=== PATIENT | female | born 1955 | race Caucasian/White ===

== ENCOUNTER 2022-07-06 19:26 | Emergency (ER) | payer OTHER, MEDICAID ==
[~2022-07-06] VITALS: Ht 167.6 cm; Wt 80.0 kg
[2022-07-06] MEDS ORDERED: HALOPERIDOL LACTATE 5MG/ML VIAL IM ONE (22:00)
[2022-07-06] MEDS ORDERED: HALOPERIDOL LACTATE 5MG/ML VIAL IM PRN (22:15)
[2022-07-06 23:12] LABS: BASOPHILS % 0.5 % (0.0-2.0); EOSINOPHILS % 0.6 % (0.0-5.0); HEMATOCRIT. 30.7 % (36.0-48.0); HEMOGLOBIN. 10.1 g/dL (12.0-16.0); LYMPHOCYTES % 11.8 % (20.0-50.0); MEAN CORPUSCULAR HEMOGLOBIN 30.4 pg (28.0-32.0); MEAN PLATELET VOLUME 9.4 fl (7.4-10.4); MONOCYTES % 7.7 % (2.0-8.0); NEUTROPHILS % 79.4 % (40.0-76.0); PLATELET 253 x1000/uL (130-400); RED BLOOD CELL COUNT 3.34 mill/uL (4.2-5.4); RED CELL DISTRIBUTION WIDTH 15.2 % (11.6-14.6)
[2022-07-06 23:23] LABS: CHLORIDE 117 mEq/L (98-107)
[2022-07-06 23:41] LABS: ETHANOL BLOOD < 10 mg/dL
[2022-07-07] MEDS ORDERED: DIPHENHYDRAMINE 50MG/ML VIAL IM PRN (01:45)
[2022-07-07] MEDS ORDERED: HALOPERIDOL LACTATE 5MG/ML VIAL IM ONE (01:45)
[2022-07-07] MEDS: VALPROATE SODIUM 250MG/5ML UDC PO SCH ×2 (13:15→17:30)
[2022-07-07] MEDS ORDERED: QUETIAPINE FUMARATE 25MG TABLET PO SCH (13:30)
[2022-07-08 13:24] VITALS: BP 136/91
== END 2022-07-08 13:31 | disposition left against medical advice (07) ==
LOC: ER 19:26
DX: R41.82 Altered mental status, unspecified (principal); R45.1 Restlessness and agitation; F03.90 Unspecified dementia, unspecified severity, without behavioral disturbance, psychotic disturbance, mood disturbance, and anxiety; F32.9 Major depressive disorder, single episode, unspecified; I10 Essential (primary) hypertension; Z20.822 Contact with and (suspected) exposure to COVID-19
CPT/HCPCS: 36415; 70450; 71045; 80053; 80307; 80320; 80329; 82140; 82962; 83605; 84443; 84484; 85025; 87426; 93005; 96372; 99285; C9803; J1200; J1630; G0480

== ENCOUNTER 2022-08-28 17:28 | Emergency (ER) | payer OTHER, MEDICAID ==
[~2022-08-28] VITALS: Ht 152.4 cm; Wt 55.0 kg
[2022-08-28 17:35] VITALS: BP 103/46
== END 2022-08-28 18:15 | disposition left against medical advice (07) ==
LOC: ER 17:28
DX: S00.81XA Abrasion of other part of head, initial encounter (principal); W01.0XXA Fall on same level from slipping, tripping and stumbling without subsequent striking against object, initial encounter; Y93.89 Activity, other specified; Y92.488 Other paved roadways as the place of occurrence of the external cause
CPT/HCPCS: 99281

== ENCOUNTER 2023-12-27 16:48 | Emergency (ER) | payer OTHER, MEDICAID ==
[~2023-12-27] VITALS: Ht 149.9 cm; Wt 50.0 kg
[~2023-12-27 16:48] MED LIST: QUET50TA PO; SERT50TA PO
[2023-12-27 16:58] VITALS: TEMP 99.1; O2SAT 98
[2023-12-27 17:30] LABS: BASOPHILS % 0.6 % (0.0-2.0); EOSINOPHILS % 0.5 % (0.0-5.0); HEMATOCRIT. 35.8 % (36.0-48.0); HEMOGLOBIN. 11.8 g/dL (12.0-16.0); LYMPHOCYTES % 23.8 % (20.0-50.0); MEAN CORPUSCULAR HEMOGLOBIN 28.9 pg (28.0-32.0); MEAN CORPUSCULAR VOLUME 87.7 fL (81.0-99.0); MEAN PLATELET VOLUME 9.3 fl (7.4-10.4); MONOCYTES % 7.2 % (2.0-8.0); NEUTROPHILS % 67.9 % (40.0-76.0); PLATELET 470 x1000/uL (130-400); RED BLOOD CELL COUNT 4.08 mill/uL (4.2-5.4); RED CELL DISTRIBUTION WIDTH 16.8 % (11.6-14.6)
[2023-12-27 17:35] LABS: CHLORIDE 106 mEq/L (98-107); POTASSIUM 3.8 mEq/L (3.5-5.1); SODIUM 140 mEq/L (136-145)
[2023-12-27 17:36] LABS: CARBON DIOXIDE 25 mEq/L (21-32)
[2023-12-27 17:37] LABS: CALCIUM 10.4 mg/dL (8.7-10.4)
[2023-12-27 17:41] LABS: CREATININE 0.9 mg/dL (0.6-1.0); GLUCOSE 156 mg/dL (70-105)
[2023-12-27 17:42] LABS: TROPONIN I HIGH SENSITIVITY 5 ng/L (3.0-34); UREA NITROGEN BLOOD 9 mg/dL (9-23)
[2023-12-27 17:43] LABS: ALANINE AMINOTRANSFERASE 12 IU/L (10-49); ALBUMIN 4.6 g/dL (3.2-4.8); ASPARTATE AMINOTRANSFERASE 16 IU/L (<34)
[2023-12-27 17:44] LABS: BILIRUBIN DIRECT < 0.1 mg/dL (<=3.0); BILIRUBIN TOTAL 0.3 mg/dL (0.1-1.0); PROTEIN TOTAL 7.9 g/dL (6.0-8.3)
[2023-12-27 18:21] LABS: CLARITY URINE CLEAR (CLEAR); COLOR URINE YELLOW (YELLOW); GLUCOSE URINE TRACE (NEGATIVE); KETONES URINE TRACE (NEGATIVE); LEUKOCYTE ESTERASE URINE 1+ (NEGATIVE); NITRITE URINE NEGATIVE (NEGATIVE); OCCULT BLOOD URINE NEGATIVE (NEGATIVE); PH URINE 6.5 (4.5-8.0); PROTEIN URINE 1+ (NEGATIVE); SPECIFIC GRAVITY URINE 1.021 (1.005-1.030)
[2023-12-27 18:38] LABS: BACTERIA URINE NONE SEEN; RBC URINE NONE SEEN /hpf (0-2); SQUAMOUS EPITHELIAL CELL URINE RARE /lpf (RARE/1+)
[2023-12-27] MEDS: ONDANSETRON HCL 4MG/2ML INJ IV ONE ×2 (20:48→23:30)
[2023-12-27] MEDS: MORPHINE SULFATE 4 MG/ML INJ (FOR IV/IM USE) IV ONE (20:48)
[2023-12-27] MEDS: CEFTRIAXONE 1GM/50ML 50 ML IV NR (23:29)
[2023-12-27] MEDS: KETOROLAC 15MG/ML VIAL IV ONE (23:30)
[2023-12-27] MEDS: SODIUM CHLORIDE 0.9% 1,000 ML IV NR (23:31)
[2023-12-28] MEDS ORDERED: ACET-2708 MT (01:19)
[2023-12-28] MEDS ORDERED: CEPH500T MT (01:19)
[2023-12-28] MEDS ORDERED: ONDA4TAB50 MT (01:19)
[2023-12-28 01:32] VITALS: BP 132/69; PULSE 93; RESP 20
[2023-12-28] MEDS ORDERED: IOHEXOL-300 100 ML BOTTLE ONE (02:51)
== END 2023-12-28 01:54 | disposition home or self-care (01) ==
LOC: ER 16:48
DX: N39.0 Urinary tract infection, site not specified (principal); R11.2 Nausea with vomiting, unspecified; F03.90 Unspecified dementia, unspecified severity, without behavioral disturbance, psychotic disturbance, mood disturbance, and anxiety; I10 Essential (primary) hypertension
CPT/HCPCS: 99285; 74177; 96365; 96375; 80076; 80048; 81003; 85025; 84484; 36415; 93005; 96376; J0696; J1885; J2405; J2270; Q9967

== ENCOUNTER 2024-04-06 11:30 | Emergency (ER) | payer OTHER, MEDICAID ==
[~2024-04-06] VITALS: Ht 160 cm; Wt 61.0 kg
[~2024-04-06 11:30] MED LIST changes: +BUSP10TA3 PO; +GABA-532 PO; +LOSA100T33 PO; +METO10TA3 PO; +OXYC1TAB10 PO; +PARO-41 PO; +TRAZ-251 PO
[2024-04-06 11:51] VITALS: O2SAT 98
[2024-04-06] MEDS ORDERED: NAPR-681 MT (14:46)
[2024-04-06 14:52] VITALS: BP 119/64; PULSE 101; RESP 22; TEMP 37.16964; O2SAT 98
[2024-04-18] MEDS ORDERED: SULF1TAB44 PO (13:51)
== END 2024-04-06 15:38 | disposition home or self-care (01) ==
LOC: ER 13:12
DX: Z48.02 Encounter for removal of sutures (principal); F03.90 Unspecified dementia, unspecified severity, without behavioral disturbance, psychotic disturbance, mood disturbance, and anxiety; Z79.899 Other long term (current) drug therapy; Z98.890 Other specified postprocedural states
CPT/HCPCS: 99282

== ENCOUNTER 2024-07-13 01:16 | Emergency (ER) | payer OTHER, MEDICAID ==
[~2024-07-13] VITALS: Ht 154.9 cm; Wt 60.0 kg
[~2024-07-13 01:16] MED LIST changes: +GABA-1180 PO; -GABA-532 PO; +NAPR-681 MT; -OXYC1TAB10 PO
[2024-07-13 02:20] VITALS: O2SAT 100
[2024-07-13] MEDS: ONDANSETRON HCL 4MG/2ML INJ IV STA (02:20)
[2024-07-13] MEDS: MIDAZOLAM HCL 2 MG/2 ML VIAL IV ONE (02:20)
[2024-07-13] MEDS: MORPHINE SULFATE 4 MG/ML INJ (FOR IV/IM USE) IV STA (02:21)
[2024-07-13 03:19] LABS: BG BASE EXCESS -5.2 mmol/L (-2.0-3.0); BG DEOXYHEMOGLOBIN 3.3 % (0.0-5.0); BG FRACTION INSPIRED OXYGEN 21; BG HCO3 ACT 20.7 mmol/L (21.0-28.0); BG METHEMOGLOBIN 0.1 % (0.5-1.5); BG OXYGEN SATURATION 96.7 % (94.0-98.0); BG OXYHEMOGLOBIN 95.6 % (94.0-98.0); BG PCO2 42.3 mmHg (32.0-45.0); BG PH 7.308 (7.350-7.450); BG SAMPLE SITE RIGHT RADIAL; BG TOTAL HEMOGLOBIN 8.7 g/dL (12.0-16.0); BG VENT MODE ROOM AIR
[2024-07-13 03:28] LABS: CHLORIDE 105 mEq/L (98-107); POTASSIUM 3.6 mEq/L (3.5-5.1); SODIUM 136 mEq/L (136-145)
[2024-07-13 03:29] LABS: CARBON DIOXIDE 24 mEq/L (21-32)
[2024-07-13 03:30] LABS: CALCIUM 8.5 mg/dL (8.7-10.4)
[2024-07-13 03:34] LABS: CREATININE 1.1 mg/dL (0.6-1.0); GLUCOSE 126 mg/dL (70-105); UREA NITROGEN BLOOD 16 mg/dL (9-23)
[2024-07-13 03:35] LABS: BASOPHILS % 1.3 % (0.0-2.0); EOSINOPHILS % 13.1 % (0.0-5.0); HEMOGLOBIN. 7.7 g/dL (12.0-16.0); LYMPHOCYTES % 34.4 % (20.0-50.0); MEAN CORPUSCULAR HEMOGLOBIN 25.3 pg (28.0-32.0); MEAN CORPUSCULAR HGB CONC 30.9 g/dL (31.0-37.0); MEAN CORPUSCULAR VOLUME 81.8 fL (81.0-99.0); MONOCYTES % 8.4 % (2.0-8.0); NEUTROPHILS % 42.8 % (40.0-76.0); PLATELET 299 x1000/uL (130-400); RED BLOOD CELL COUNT 3.05 mill/uL (4.2-5.4); WHITE BLOOD COUNT 4.5 x1000/uL (4.5-11.0)
[2024-07-13 03:46] LABS: TROPONIN I HIGH SENSITIVITY < 4 ng/L (3.0-34)
[2024-07-13] MEDS: MORPHINE SULFATE 4 MG/ML INJ (FOR IV/IM USE) IV NR (04:23)
[2024-07-13 05:45] LABS: TROPONIN I HIGH SENSITIVITY < 4 ng/L (3.0-34)
[2024-07-13] MEDS ORDERED: CLONIDINE 0.1MG TABLET PO PRN (13:00)
[2024-07-13] MEDS ORDERED: DOCUSATE SODIUM 100MG CAPSULE PO PRN (13:00)
[2024-07-13] MEDS ORDERED: ACETAMINOPHEN 325MG TABLET PO PRN ×2 (13:00)
[2024-07-13] MEDS ORDERED: IPRATROPIUM/ALBUTEROL 0.5-3(2.5)MG/3ML NEB HHN PRN (13:00)
[2024-07-13] MEDS ORDERED: ONDANSETRON HCL 4MG/2ML INJ IV PRN (13:00)
[2024-07-13 14:30] VITALS: BP 109/60; PULSE 81; RESP 17; O2SAT 98
== END 2024-07-13 16:23 | disposition home or self-care (01) ==
LOC: ER 01:35 → CANBEDREQ 16:01 → ER 16:23
DX: I50.9 Heart failure, unspecified (principal); J45.909 Unspecified asthma, uncomplicated; Z79.899 Other long term (current) drug therapy; Z98.890 Other specified postprocedural states
CPT/HCPCS: 99291; 93970; 96374; 96375; 71045; 80048; 83880; 83605; 85025; 85379; 84484; 87804 ×2; 36415; 82805; 82375; 96376; 36600; J2250; J2405; J2270

== ENCOUNTER 2024-08-21 06:20 | Emergency (ER) | payer OTHER, MEDICAID ==
[~2024-08-21] VITALS: Ht 162.6 cm; Wt 50.0 kg
[2024-08-21 06:30] VITALS: TEMP 97.9; O2SAT 97
[2024-08-21 06:32] VITALS: BP 146/99; PULSE 99; RESP 20; O2SAT 98
[2024-08-21] MEDS ORDERED: KETOROLAC 15MG/ML VIAL IM ONE (07:30)
[2024-08-21] MEDS ORDERED: ACETAMINOPHEN 325MG TABLET PO ONE (07:30)
[2024-08-21] MEDS ORDERED: LIDO700A30 TP (08:34)
[2024-08-21] MEDS ORDERED: ACET-2708 MT (08:34)
[2024-08-21] MEDS: KETOROLAC 15MG/ML VIAL IM NR (09:18)
[2024-08-21] MEDS: ACETAMINOPHEN 325MG TABLET PO NR (09:18)
[2024-08-21] MEDS: LIDOCAINE 5% PATCH TOP SCH (09:18)
== END 2024-08-21 09:22 | disposition home or self-care (01) ==
LOC: ER 06:36
DX: M25.551 Pain in right hip (principal); F03.90 Unspecified dementia, unspecified severity, without behavioral disturbance, psychotic disturbance, mood disturbance, and anxiety; J45.909 Unspecified asthma, uncomplicated; Z79.1 Long term (current) use of non-steroidal anti-inflammatories (NSAID); Z79.899 Other long term (current) drug therapy; Z96.641 Presence of right artificial hip joint
CPT/HCPCS: 99283; 73502; 96372; J1885

== ENCOUNTER 2024-09-07 06:00 | Emergency (ER) | payer OTHER, MEDICAID ==
[~2024-09-07] VITALS: Ht 154.9 cm; Wt 45.5 kg
[~2024-09-07 06:00] MED LIST changes: +ACET-2708 MT; +LIDO700A30 TP
[2024-09-07 06:09] VITALS: O2SAT 99
[2024-09-07] MEDS: HYDROCODONE/ACETAMINOPHEN 5/325MG TABLET PO ONE (07:47)
[2024-09-07] MEDS ORDERED: NAPR-681 MT (07:57)
[2024-09-07 08:35] VITALS: BP 130/70; PULSE 84; RESP 16; TEMP 36.8; O2SAT 99
== END 2024-09-07 08:54 | disposition home or self-care (01) ==
LOC: ER 06:23
DX: M25.551 Pain in right hip (principal); J45.909 Unspecified asthma, uncomplicated; Z98.890 Other specified postprocedural states; Z79.899 Other long term (current) drug therapy
CPT/HCPCS: 99283

== ENCOUNTER 2024-12-18 16:22 | Emergency (ER) | payer OTHER, MEDICAID ==
[~2024-12-18] VITALS: Ht 157.5 cm; Wt 55.0 kg
[~2024-12-18 16:22] MED LIST changes: -ACET-2708 MT; -BUSP10TA3 PO; -GABA-1180 PO; -LIDO700A30 TP; +LOSA-412 MT; -LOSA100T33 PO; -METO10TA3 PO; -NAPR-681 MT; -PARO-41 PO; -QUET50TA PO; -SERT50TA PO; -TRAZ-251 PO
[2024-12-18 16:24] VITALS: O2SAT 98
[2024-12-18] MEDS: OXYCODONE HCL/ACETAMINOPHEN 5/325MG TABLET PO ONE (16:49)
[2024-12-18 18:30] VITALS: BP 112/68; PULSE 82; RESP 20; TEMP 36.6; O2SAT 97
== END 2024-12-18 18:48 | disposition home or self-care (01) ==
LOC: ER 16:22
DX: G89.29 Other chronic pain (principal); M54.50 Low back pain, unspecified; M25.551 Pain in right hip; F03.90 Unspecified dementia, unspecified severity, without behavioral disturbance, psychotic disturbance, mood disturbance, and anxiety; J45.909 Unspecified asthma, uncomplicated; Z79.899 Other long term (current) drug therapy
CPT/HCPCS: 99283

== ENCOUNTER 2025-01-20 15:35 | Emergency (ER) | payer OTHER, MEDICAID ==
[~2025-01-20] VITALS: Ht 157.5 cm; Wt 49.8 kg
[2025-01-20 15:42] VITALS: O2SAT 97
[2025-01-20] MEDS ORDERED: ACETAMINOPHEN 325MG TABLET PO ONE (16:30)
[2025-01-20] MEDS ORDERED: OXYC1TAB5 MT (16:41)
[2025-01-20] MEDS: OXYCODONE HCL/ACETAMINOPHEN 5/325MG TABLET PO ONE (16:56)
[2025-01-20 16:58] VITALS: BP 138/84; PULSE 86; RESP 18; TEMP 36.8; O2SAT 98
== END 2025-01-20 16:59 | disposition home or self-care (01) ==
LOC: ER 15:35
DX: G89.29 Other chronic pain (principal); M54.9 Dorsalgia, unspecified; J45.909 Unspecified asthma, uncomplicated; F03.90 Unspecified dementia, unspecified severity, without behavioral disturbance, psychotic disturbance, mood disturbance, and anxiety; Z76.0 Encounter for issue of repeat prescription; Z98.890 Other specified postprocedural states
CPT/HCPCS: 99283

== ENCOUNTER 2025-03-18 11:40 | Emergency (ER) | payer OTHER, MEDICAID ==
[~2025-03-18] VITALS: Ht 160 cm; Wt 49.0 kg
[~2025-03-18 11:40] MED LIST changes: +CIPR-263 MT; +OXYC1TAB5 MT
[2025-03-18 12:07] VITALS: O2SAT 96
[2025-03-18] MEDS: KETOROLAC 30MG/ML VIAL IM ONE (12:45)
[2025-03-18] MEDS ORDERED: IBUP-2029 MT (14:35)
[2025-03-18 14:54] VITALS: BP 141/77; PULSE 78; RESP 18; TEMP 36.7; O2SAT 96
== END 2025-03-18 14:57 | disposition home or self-care (01) ==
LOC: ER 11:44
DX: G89.29 Other chronic pain (principal); M25.551 Pain in right hip; J45.909 Unspecified asthma, uncomplicated; F03.90 Unspecified dementia, unspecified severity, without behavioral disturbance, psychotic disturbance, mood disturbance, and anxiety; Z79.899 Other long term (current) drug therapy; Z96.641 Presence of right artificial hip joint
CPT/HCPCS: 99283; 73502; 96372; J1885

== ENCOUNTER 2025-03-26 19:05 | Emergency (ER) | payer OTHER, MEDICAID ==
[~2025-03-26] VITALS: Ht 165.1 cm; Wt 41.0 kg
[~2025-03-26 19:05] MED LIST changes: +IBUP-2029 MT
[2025-03-26 19:06] VITALS: TEMP 37; O2SAT 96
[2025-03-26 19:59] LABS: CLARITY URINE CLOUDY (CLEAR); COLOR URINE ORANGE (YELLOW); GLUCOSE URINE NEGATIVE (NEGATIVE); KETONES URINE 2+ (NEGATIVE); LEUKOCYTE ESTERASE URINE 2+ (NEGATIVE); NITRITE URINE POSITIVE (NEGATIVE); OCCULT BLOOD URINE 3+ (NEGATIVE); PH URINE 5.0 (4.5-8.0); PROTEIN URINE 2+ (NEGATIVE); SPECIFIC GRAVITY URINE 1.020 (1.005-1.030); UROBILINOGEN URINE 1.0 E.U./dL (0.2-1.0)
[2025-03-26 20:07] LABS: BASOPHILS % 0.8 % (0.0-2.0); EOSINOPHILS % 4.0 % (0.0-5.0); HEMATOCRIT. 35.1 % (36.0-48.0); HEMOGLOBIN. 11.4 g/dL (12.0-16.0); LYMPHOCYTES % 24.1 % (20.0-50.0); MEAN PLATELET VOLUME 8.9 fl (7.4-10.4); MONOCYTES % 7.0 % (2.0-8.0); NEUTROPHILS % 64.1 % (40.0-76.0); PLATELET 371 x1000/uL (130-400); RED BLOOD CELL COUNT 3.69 mill/uL (4.2-5.4); RED CELL DISTRIBUTION WIDTH 16.1 % (11.6-14.6)
[2025-03-26 20:19] LABS: INR 0.9
[2025-03-26] MEDS: MORPHINE SULFATE 4 MG/ML INJ (FOR IV/IM USE) IV ONE (20:20)
[2025-03-26 20:21] LABS: ETHANOL BLOOD < 10 mg/dL (<10); UREA NITROGEN BLOOD 14 mg/dL (9-23)
[2025-03-26] MEDS: SODIUM CHLORIDE 0.9% 1,000 ML IV ONE (20:21)
[2025-03-26] MEDS: METOCLOPRAMIDE HCL 10MG/2ML VIAL IV ONE (20:21)
[2025-03-26 20:22] LABS: ASPARTATE AMINOTRANSFERASE 14 IU/L (<34); BILIRUBIN DIRECT 0.1 mg/dL (<=3.0); TROPONIN I HIGH SENSITIVITY 4 ng/L (3.0-34)
[2025-03-26 20:23] LABS: BILIRUBIN TOTAL 0.3 mg/dL (0.1-1.0); PROTEIN TOTAL 7.4 g/dL (6.0-8.3)
[2025-03-26 20:25] LABS: CREATININE 1.4 mg/dL (0.6-1.0)
[2025-03-26 20:35] LABS: BACTERIA URINE 2+; RBC URINE 15-25 /hpf (0-2); SQUAMOUS EPITHELIAL CELL URINE 1+ /lpf (RARE/1+)
[2025-03-26 21:35] VITALS: BP 175/90; PULSE 87; RESP 25; O2SAT 96
[2025-03-26] MEDS: CEFTRIAXONE 2GM/50ML 50 ML IV NR (22:35)
[2025-03-26] MEDS ORDERED: CEPH500T MT (22:49)
[2025-03-27] MEDS: IOHEXOL-300 100 ML BOTTLE ONE (00:21)
== END 2025-03-26 23:21 | disposition home or self-care (01) ==
LOC: ER 19:05 → CMPBEDREQ 03-28 07:16
DX: N39.0 Urinary tract infection, site not specified (principal); R10.13 Epigastric pain; J45.909 Unspecified asthma, uncomplicated; F03.90 Unspecified dementia, unspecified severity, without behavioral disturbance, psychotic disturbance, mood disturbance, and anxiety; Z79.899 Other long term (current) drug therapy; Z98.890 Other specified postprocedural states
CPT/HCPCS: 80076; 80048; 81003; 80320; 83880; 83605; 83690; 83735; 85025; 85610; 85730; 84484; 36415; 74177; 76705; 96361; 96365; 96375; 99285; Q9967; J0696; J2765; J2270; J7030; G0480

== ENCOUNTER 2025-04-15 05:46 | Emergency (ER) | payer OTHER, MEDICAID ==
[~2025-04-15] VITALS: Ht 165.1 cm; Wt 54.0 kg
[~2025-04-15 05:46] MED LIST changes: +CEPH500T MT; +IBUP-1455 MT; -IBUP-2029 MT
[2025-04-15 05:57] VITALS: O2SAT 97
[2025-04-15 06:18] VITALS: TEMP 36.9
[2025-04-15] MEDS: KETOROLAC 15MG/ML VIAL IM ONE (07:02)
[2025-04-15 07:36] LABS: BASOPHILS % 0.4 % (0.0-2.0); EOSINOPHILS % 0.3 % (0.0-5.0); HEMATOCRIT. 31.7 % (36.0-48.0); HEMOGLOBIN. 10.4 g/dL (12.0-16.0); LYMPHOCYTES % 13.8 % (20.0-50.0); MEAN PLATELET VOLUME 8.9 fl (7.4-10.4); MONOCYTES % 1.8 % (2.0-8.0); NEUTROPHILS % 83.7 % (40.0-76.0); PLATELET 284 x1000/uL (130-400); RED BLOOD CELL COUNT 3.38 mill/uL (4.2-5.4); RED CELL DISTRIBUTION WIDTH 16.2 % (11.6-14.6)
[2025-04-15 07:39] LABS: CREATININE 1.0 mg/dL (0.6-1.0); UREA NITROGEN BLOOD 9.0 mg/dL (9-23)
[2025-04-15 07:42] LABS: CLARITY URINE CLOUDY (CLEAR); COLOR URINE YELLOW (YELLOW); GLUCOSE URINE NEGATIVE (NEGATIVE); KETONES URINE NEGATIVE (NEGATIVE); LEUKOCYTE ESTERASE URINE 2+ (NEGATIVE); NITRITE URINE POSITIVE (NEGATIVE); OCCULT BLOOD URINE NEGATIVE (NEGATIVE); PH URINE 6.0 (4.5-8.0); PROTEIN URINE TRACE (NEGATIVE); SPECIFIC GRAVITY URINE 1.019 (1.005-1.030); UROBILINOGEN URINE 0.2 E.U./dL (0.2-1.0)
[2025-04-15 08:03] LABS: BACTERIA URINE 3+; RBC URINE NONE SEEN /hpf (0-2); SQUAMOUS EPITHELIAL CELL URINE NONE SEEN /lpf (RARE/1+); WBC URINE 50-100 /hpf (0-2)
[2025-04-15] MEDS ORDERED: CEPH500C2 MT (08:43)
[2025-04-15] MEDS: CEPHALEXIN 250MG CAPSULE PO ONE (08:51)
[2025-04-15] MEDS: ACETAMINOPHEN 325MG TABLET PO ONE (08:52)
[2025-04-15 09:03] VITALS: BP 162/83; PULSE 65; RESP 18; O2SAT 100
== END 2025-04-15 09:09 | disposition home or self-care (01) ==
LOC: ER 05:46
DX: N12 Tubulo-interstitial nephritis, not specified as acute or chronic (principal); J45.909 Unspecified asthma, uncomplicated; Z79.899 Other long term (current) drug therapy; Z98.890 Other specified postprocedural states
CPT/HCPCS: 99285; 74176; 80048; 81003; 85025; 87086; 87186; 87077; 36415; 96372; J1885

== ENCOUNTER 2025-04-21 18:12 | Emergency (ER) | payer OTHER, MEDICAID ==
[~2025-04-21] VITALS: Ht 157.5 cm; Wt 49.0 kg
[~2025-04-21 18:12] MED LIST changes: +CEPH500C2 MT
[2025-04-21 18:33] VITALS: O2SAT 97
[2025-04-21] MEDS: KETOROLAC 30MG/ML VIAL IM ONE (20:55)
[2025-04-21] MEDS: METHOCARBAMOL 500MG TABLET PO ONE (20:55)
[2025-04-21] MEDS ORDERED: METH-653 MT (21:32)
[2025-04-21] MEDS ORDERED: IBUP-1455 MT (21:32)
[2025-04-21 21:48] VITALS: BP 141/88; PULSE 66; RESP 15; TEMP 36.6; O2SAT 99
== END 2025-04-21 21:50 | disposition home or self-care (01) ==
LOC: ER 18:12
DX: S33.5XXA Sprain of ligaments of lumbar spine, initial encounter (principal); J45.909 Unspecified asthma, uncomplicated; M41.9 Scoliosis, unspecified; Z79.899 Other long term (current) drug therapy; Z98.890 Other specified postprocedural states; X58.XXXA Exposure to other specified factors, initial encounter; Y93.89 Activity, other specified; Y92.89 Other specified places as the place of occurrence of the external cause; Y99.8 Other external cause status
CPT/HCPCS: 99283; 72100; 96372; J1885

== ENCOUNTER 2025-07-07 05:36 | Emergency (ER) | payer OTHER, MEDICAID ==
[~2025-07-07] VITALS: Ht 157.5 cm; Wt 50.1 kg
[~2025-07-07 05:36] MED LIST changes: +ALBU90AE IH; +APIX2.5T PO; -CEPH500C2 MT; -CEPH500T MT; -CIPR-263 MT; +METH-653 MT; +METO-539 PO; +P20 MT; +QUET50TA PO
[2025-07-07 06:00] VITALS: O2SAT 98
[2025-07-07] MEDS: ACETAMINOPHEN 325MG TABLET PO ONE (07:19)
[2025-07-07] MEDS ORDERED: TRAM50TA3 MT (07:55)
[2025-07-07] MEDS ORDERED: ACET-2708 MT (07:55)
[2025-07-07] MEDS: TRAMADOL 50MG TABLET PO ONE (08:08)
[2025-07-07 09:04] VITALS: BP 113/62; PULSE 85; RESP 16; TEMP 37.1; O2SAT 99
== END 2025-07-07 09:06 | disposition home or self-care (01) ==
LOC: ER 05:36
DX: R51.9 Headache, unspecified (principal); F03.90 Unspecified dementia, unspecified severity, without behavioral disturbance, psychotic disturbance, mood disturbance, and anxiety; G31.9 Degenerative disease of nervous system, unspecified; I10 Essential (primary) hypertension; I67.82 Cerebral ischemia; Z79.01 Long term (current) use of anticoagulants; Z79.899 Other long term (current) drug therapy
CPT/HCPCS: 99284

== ENCOUNTER 2025-07-09 03:27 | Inpatient (IN) | payer OTHER, MEDICAID, MEDICARE ==
[~2025-07-09] VITALS: Ht 153.2 cm; Wt 46.4 kg
[~2025-07-09 03:27] MED LIST changes: +ACET-2708 MT; +TRAM50TA3 MT
[2025-07-09 03:32] VITALS: O2SAT 97
[2025-07-09] MEDS: NALOXONE HCL 1MG/ML 2ML VIAL IV ONE (03:58)
[2025-07-09] MEDS: SODIUM CHLORIDE 0.9% 1,000 ML IV ONE (03:58)
[2025-07-09 04:43] LABS: HEMATOCRIT. 32.1 % (36.0-48.0); HEMOGLOBIN. 9.8 g/dL (12.0-16.0); MEAN PLATELET VOLUME 8.6 fl (7.4-10.4); PLATELET 263 x1000/uL (130-400); RED BLOOD CELL COUNT 3.44 mill/uL (4.2-5.4); RED CELL DISTRIBUTION WIDTH 16.8 % (11.6-14.6)
[2025-07-09] MEDS: LORAZEPAM 2MG/ML UD SYRINGE IV NR (04:53)
[2025-07-09 04:56] LABS: CREATININE 1.1 mg/dL (0.6-1.0); UREA NITROGEN BLOOD 16 mg/dL (9-23)
[2025-07-09 04:58] LABS: ASPARTATE AMINOTRANSFERASE 74 IU/L (<34); BILIRUBIN DIRECT < 0.1 mg/dL (<=3.0); BILIRUBIN TOTAL 0.3 mg/dL (0.1-1.0); PROTEIN TOTAL 6.8 g/dL (6.0-8.3)
[2025-07-09 05:45] LABS: BAND% 4.0 % (1.0-6.0); LYMPHOCYTES % MANUAL 2.0 % (20.0-60.0); MONOCYTES % MANUAL 2.0 % (2.0-8.0); NEUTROPHILS % MANUAL 92.0 % (45.0-75.0); PLATELET ESTIMATE MARKEDLY INCREASED
[2025-07-09 06:18] LABS: ETHANOL BLOOD < 10 mg/dL (<10)
[2025-07-09 08:00] VITALS: BP_SYST 121; BP_SYST 150; BP_DIAS 80; BP_DIAS 89; PULSE 76; PULSE 78; RESP 18; RESP 20; TEMP 36.4; TEMP 36.5848; O2SAT 97
[2025-07-09] MEDS: SODIUM ZIRCONIUM CYCLOSILICATE 10GM/PACKET PO NR (08:45)
[2025-07-09] MEDS ORDERED: ONDANSETRON HCL 4MG/2ML INJ IV PRN (08:45)
[2025-07-09] MEDS ORDERED: ACETAMINOPHEN 325MG TABLET PO PRN ×2 (08:45)
[2025-07-09] MEDS ORDERED: ALBUTEROL (0.083%) 2.5MG/3ML NEB HHN NR (08:45)
[2025-07-09] MEDS: INSULIN LISPRO 100 UNITS/ML SUBCUT NR (08:45)
[2025-07-09] MEDS: DEXTROSE 50% WATER 50ML SYRINGE IV NR (08:45)
[2025-07-09] MEDS ORDERED: IPRATROPIUM/ALBUTEROL 0.5-3(2.5)MG/3ML NEB HHN PRN (08:45)
[2025-07-09] MEDS ORDERED: GUAIFENESIN 200MG/10ML SUGAR FREE UDC PO PRN (08:45)
[2025-07-09] MEDS ORDERED: DOCUSATE SODIUM 100MG CAPSULE PO PRN (08:45)
[2025-07-09] MEDS: METOPROLOL TARTRATE 50MG TABLET PO SCH (09:00)
[2025-07-09] MEDS: METHOCARBAMOL 750MG TABLET PO SCH (09:00)
[2025-07-09] MEDS: APIXABAN 2.5 MG TABLET PO SCH (09:00)
[2025-07-09 12:00] VITALS: BP 121/54; PULSE 87; RESP 20; TEMP 36.1; O2SAT 96
[2025-07-09 12:15] LABS: BG BASE EXCESS -6.5 mmol/L (-2.0-3.0); BG CARBOXYHEMOGLOBIN 0.3 % (0.5-1.5); BG DEOXYHEMOGLOBIN 5.8 % (0.0-5.0); BG FRACTION INSPIRED OXYGEN 21; BG HCO3 ACT 18.4 mmol/L (21.0-28.0); BG METHEMOGLOBIN 0.3 % (0.5-1.5); BG OXYGEN SATURATION 94.2 % (94.0-98.0); BG OXYHEMOGLOBIN 93.6 % (94.0-98.0); BG PCO2 34.5 mmHg (32.0-45.0); BG PH 7.345 (7.350-7.450); BG PO2 70.1 mmHg (83.0-108.0); BG SAMPLE SITE RIGHT RADIAL; BG TOTAL HEMOGLOBIN 10.9 g/dL (12.0-16.0); BG VENT MODE ROOM AIR
[2025-07-09] MEDS: NALOXONE HCL 1MG/ML 2ML VIAL IV NR (12:23)
[2025-07-09] MEDS ORDERED: NALOXONE 4 MG in SODIUM CHLORIDE 0.9% 246 ML IV PRN (14:30)
[2025-07-09] MEDS: SODIUM CHLORIDE 0.9% 1,000 ML IV SCH (15:09)
[2025-07-09 16:00] VITALS: BP 144/85; PULSE 76; RESP 18; TEMP 36.3; O2SAT 99
[2025-07-09] MEDS: DEXT 5% IV ONE ×2 (18:02→21:49)
[2025-07-09] MEDS: WATER IV ONE ×2 (18:02→21:49)
[2025-07-09] MEDS: ACETYLCYSTEINE IV ONE ×2 (18:02→21:49)
[2025-07-09 20:00] VITALS: BP 130/78; PULSE 85; RESP 19; TEMP 36.3; O2SAT 95
[2025-07-09] MEDS ORDERED: QUETIAPINE FUMARATE 50MG TABLET PO SCH (21:00)
[2025-07-09] MEDS: NALOXONE HCL 1MG/ML 2ML VIAL IV SCH (21:49)
[2025-07-10] VITALS (10 sets, daily range): BP systolic 111–152; BP diastolic 66–89; PULSE 71–119; RESP 12–25; TEMP 36.4–37; O2SAT 96–99
[2025-07-10 03:01] LABS: ASPARTATE AMINOTRANSFERASE 50 IU/L (<34)
[2025-07-10] MEDS: THIAMINE HCL 200 MG in SODIUM CHLORIDE 0.9% 98 ML IV SCH (03:03)
[2025-07-10] MEDS: DEXTROSE 5% IV ONE (06:13)
[2025-07-10] MEDS: ACETYLCYSTEINE IV ONE (06:13)
[2025-07-10] MEDS: WATER IV ONE (06:13)
[2025-07-10 06:31] LABS: CREATININE 0.6 mg/dL (0.6-1.0); UREA NITROGEN BLOOD 18 mg/dL (9-23)
[2025-07-10 06:32] LABS: ASPARTATE AMINOTRANSFERASE 42 IU/L (<34)
[2025-07-10 06:47] LABS: HEMATOCRIT. 29.8 % (36.0-48.0); HEMOGLOBIN. 9.5 g/dL (12.0-16.0); MEAN PLATELET VOLUME 9.3 fl (7.4-10.4); PLATELET 302 x1000/uL (130-400); RED BLOOD CELL COUNT 3.33 mill/uL (4.2-5.4); RED CELL DISTRIBUTION WIDTH 16.1 % (11.6-14.6)
[2025-07-10 14:05] LABS: ASPARTATE AMINOTRANSFERASE 34 IU/L (<34)
[2025-07-10 16:49] LABS: CREATININE 0.7 mg/dL (0.6-1.0)
[2025-07-10 16:50] LABS: ETHANOL BLOOD < 10 mg/dL (<10); UREA NITROGEN BLOOD 11 mg/dL (9-23)
[2025-07-10 17:11] LABS: ASPARTATE AMINOTRANSFERASE 44 IU/L (<34)
[2025-07-10 20:32] LABS: BAND% 1.0 % (1.0-6.0); LYMPHOCYTES % MANUAL 8.0 % (20.0-60.0); MONOCYTES % MANUAL 1.0 % (2.0-8.0); NEUTROPHILS % MANUAL 90.0 % (45.0-75.0); PLATELET ESTIMATE NORMAL
[2025-07-10] MEDS: ZOLPIDEM TARTRATE 5MG TABLET PO PRN (22:42)
[2025-07-11] VITALS (12 sets, daily range): BP systolic 108–174; BP diastolic 70–112; PULSE 60–85; RESP 13–27; TEMP 36.2–36.8; O2SAT 96–99
[2025-07-11] MEDS: CLONIDINE 0.1MG TABLET PO PRN (04:17)
[2025-07-11] MEDS: LORAZEPAM 2MG/ML UD SYRINGE IV NR (11:55)
[2025-07-11 12:51] LABS: ASPARTATE AMINOTRANSFERASE 55 IU/L (<34)
[2025-07-11] MEDS: MORPHINE SULFATE 2 MG/ML INJ (NOT FOR IM USE) IV PRN (17:59)
[2025-07-11 19:31] LABS: ASPARTATE AMINOTRANSFERASE 54 IU/L (<34)
[2025-07-12] VITALS (12 sets, daily range): BP systolic 89–165; BP diastolic 48–82; PULSE 57–79; RESP 12–19; TEMP 36.1–37; O2SAT 94–100
[2025-07-12] MEDS: QUETIAPINE FUMARATE 25MG TABLET PO SCH (21:57)
[2025-07-12] MEDS: SODIUM CHLORIDE 0.9% 500 ML IV ONE (23:31)
[2025-07-12] MEDS: MIDODRINE HCL 5MG TABLET PO SCH (23:38)
[2025-07-13] VITALS (12 sets, daily range): BP systolic 86–152; BP diastolic 54–113; PULSE 57–79; RESP 12–22; TEMP 36.3–36.7; O2SAT 96–99
[2025-07-13] MEDS: ACETAMINOPHEN 325MG TABLET PO PRN (05:17)
[2025-07-13 07:16] LABS: BASOPHILS % 0.6 % (0.0-2.0); EOSINOPHILS % 3.7 % (0.0-5.0); HEMATOCRIT. 27.1 % (36.0-48.0); HEMOGLOBIN. 8.7 g/dL (12.0-16.0); LYMPHOCYTES % 27.1 % (20.0-50.0); MEAN PLATELET VOLUME 9.2 fl (7.4-10.4); MONOCYTES % 8.4 % (2.0-8.0); NEUTROPHILS % 60.2 % (40.0-76.0); PLATELET 345 x1000/uL (130-400); RED BLOOD CELL COUNT 3.06 mill/uL (4.2-5.4); RED CELL DISTRIBUTION WIDTH 15.8 % (11.6-14.6)
[2025-07-13 07:36] LABS: CREATININE 0.7 mg/dL (0.6-1.0)
[2025-07-13 07:37] LABS: PROTEIN TOTAL 5.5 g/dL (6.0-8.3); UREA NITROGEN BLOOD 12 mg/dL (9-23)
[2025-07-13 07:38] LABS: ASPARTATE AMINOTRANSFERASE 24 IU/L (<34)
[2025-07-13 07:39] LABS: BILIRUBIN DIRECT < 0.1 mg/dL (<=3.0); BILIRUBIN TOTAL 0.2 mg/dL (0.1-1.0)
[2025-07-14] VITALS (11 sets, daily range): BP systolic 94–152; BP diastolic 59–80; PULSE 68–80; RESP 15–23; TEMP 36.5–36.6; O2SAT 97–100
[2025-07-14] MEDS: MORPHINE SULFATE 2 MG/ML INJ (NOT FOR IM USE) IV PRN (09:00)
[2025-07-15] VITALS: TEMP 36.8
[2025-07-15 02:00] VITALS: BP 104/65; PULSE 59; RESP 15; O2SAT 99
[2025-07-15 04:00] VITALS: BP 112/86; TEMP 36.3
[2025-07-15 06:00] VITALS: BP 108/64; PULSE 70; RESP 13; O2SAT 97
[2025-07-15 08:00] VITALS: BP 130/111; PULSE 83; RESP 20; TEMP 36.6; O2SAT 97
[2025-07-15 09:15] VITALS: PULSE 76
== END 2025-07-15 11:02 | disposition home or self-care (01) | DRG 917 ==
LOC: ER 04:12 → 8WST 05:07 → EDBEDREQTM 05:13 → EDBEDREQ 05:13 → ENRESERV 07:17 → 5EST 23:44
PROVIDERS: ADMIT Internal Medicine; ATTEND Internal Medicine
PROC: 4A00X4Z Measurement of Central Nervous Electrical Activity, External Approach (ICD-10-PCS; principal; 2025-07-10)
DX: T39.1X1A Poisoning by 4-Aminophenol derivatives, accidental (unintentional), initial encounter (principal); G93.41 Metabolic encephalopathy; N17.9 Acute kidney failure, unspecified; F03.90 Unspecified dementia, unspecified severity, without behavioral disturbance, psychotic disturbance, mood disturbance, and anxiety; I10 Essential (primary) hypertension; J44.9 Chronic obstructive pulmonary disease, unspecified; D64.9 Anemia, unspecified; J84.9 Interstitial pulmonary disease, unspecified; T40.601A Poisoning by unspecified narcotics, accidental (unintentional), initial encounter; I48.91 Unspecified atrial fibrillation; G89.29 Other chronic pain; Z79.899 Other long term (current) drug therapy; Y92.89 Other specified places as the place of occurrence of the external cause; T40.2X1A Poisoning by other opioids, accidental (unintentional), initial encounter
CPT/HCPCS: 36415; 36600; 71045; 80048; 80076; 80307; 80320; 80329; 82140; 82375; 82550; 82805; 82962; 84075; 84132; 84145; 84450; 84460; 85025; 93005; 95816; 96361; 96374; 96375; 99285; A4606; J0132; J1815; J2060; J2270; J2312; J3411; J7030; J7050; J7060; J7070; G0480